=== PATIENT | male | born 1960 | race Caucasian/White ===

== ENCOUNTER 2019-11-10 07:35 | Day surgery (SDC) | payer OTHER ==
[2019-11-09 10:41] VITALS: BMI 27.3
--- OUTSIDE RECORDS SUMMARY | 2019-11-10 07:39 | XMS ---
:1960 Author Organization [facility] Care Team Providers Name Role Phone MD Patricio Martinez Unavailable Unavailable Hamilton [place] Unavailable Unavailable MD Sara Wagoner Unavailable Unavailable Hermilo Mtz MD Unavailable Unavailable LEENA HEADLEY Unavailable Unavailable REVA HEADLEY Unavailable Unavailable REVA HEADLEY Unavailable Unavailable REVA HEADLEY Unavailable Unavailable Re-disclosure Warning The records that you are about to access may contain information from federally- assisted alcohol or drug abuse programs. If such information is present, then the following federally mandated warning applies: This information has been disclosed to you from records protected by federal confidentiality rules (42 CFR part 2). The federal rules prohibit you from making any further disclosure of this information unless further disclosure is expressly permitted by the written consent of the person to whom it pertains or as otherwise permitted by 42 CFR part 2. A general authorization for the release of medical or other information is NOT sufficient for this purpose. The Federal rules restrict any use of the information to criminally investigate or prosecute any alcohol or drug abuse patient.The records that you are about to access may contain highly sensitive health information, the redisclosure of which is protected by Article 27-F of the [facility] Public Health law. If you continue you may haveaccess to information: Regarding HIV / AIDS; Provided by facilities licensed or operated by the [facility] Office of Mental Health; or Provided by the [facility] Office for People With Developmental Disabilities. If such information is present, then the following [facility] mandated warning applies: This information has been disclosed to you from confidential records which are protected by state law. State law prohibits you from making any further disclosure of this information without the specific written consent of the person to whom it pertains, or as otherwise permitted by law. Any unauthorized further disclosure in violation of state law may result in a fine or long-term sentence or both. A general authorization for the release of medical or other information is NOT sufficient authorization for further disclosure. 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 Observation Data S ource(s) Description Advance No completed [place] [facility] Advance No completed [place] [facility] Allergies and Adverse Reactions Type Description Substance Reaction Status Data Source(s ) Drug allergy No Known Allergies No Known NO KNOWN ALLERG [facility] Encounters Encounter Providers Location Date Indications Data Source(s ) P Attender: LEENA 10/30/2019 Z03.818 Reynaldo HEADLEY 11:09:00 AM EDT [facility] Z03.818 S Attender: MD Ruiz ICU-AMB SURG 09/15/2019 03:30:52 PM S - Lily Wagoner EDT - 09/17/2019 Hospital 02:11:00 PM EDT Patient discharged. Outpatient Attender: MD Ruiz ICU-LAB 09/15/2019 03:26:13 PM S - iLly Wagoner EDT - 09/16/2019 Hospital 11:59:00 PM EDT Patient discharged. Outpatient Attender: Hermilo 07/15/2019 08:00:00 SCREENING FOR [place] AM EDT - 08/21/2019 MALIGNANT NEOPLA [facility] 08:02:00 AM EDT COLON SCREENING FOR MALIGNANT NEOPLASM COLON Patient discharged. Outpatient Attender: ICU-SPORTS MED CL 03/27/2019 07:59:00 [facility] - Lily Wagoner AM EST - 03/27/2019 [facility] 11:59:00 PM EST Patient discharged. R Attender: MD Curry ICU-SENIOR BUSINESS PROCESS ANALYST 01/16/2019 10:26:00 AM [facility] - [place] [facility] EST - 01/16/2019 Hospital 11:26:00 PM EST Patient discharged. Outpatient Attender: ICU-SPORTS MED CL 01/16/2019 08:17:00 [facility] - [place] Sara Allenr AM EST - 01/16/2019 [facility] 11:59:00 PM EST Patient discharged. R Attender: MD Curry ICU-SENIOR BUSINESS PROCESS ANALYST 12/26/2018 10:35:00 AM [facility] - [place] [facility] EST - 01/02/2019 Hospital 11:59:00 PM EST Patient discharged. Outpatient Attender: ICU-SPORTS MED CL 12/12/2018 09:18:00 [facility] - [place] Sara Rizwana AM EDT - 12/12/2018 [facility] 11:59:00 PM EDT Patient discharged. Outpatient Attender: MD Ruiz ICU-ORTHO 11/14/2018 08:41:00 AM S - [place] [facility] EDT - 11/14/2018 [facility] 11:59:00 PM EDT Patient discharged. S Attender: MD Sara Wagoner ICU-3N 11/04/2018 03:04:58 PM EDT S - [place] - 11/06/2018 09:46:00 AM Hospital EDT Patient discharged. Outpatient Attender: ICU-SPORTS MED CL 10/31/2018 08:46:00 [facility] - [place] Sara Rizwana AM EDT - 10/31/2018 [facility] 11:59:00 PM EDT Patient discharged. Emergency Attender: Hamilton ICU-EMERG 10/30/2018 BIBA RT KNEE [facility] - N ew [place] 08:00:00 AM EDT INJURY/EMPRESS Stephanie lle - 10/30/2018 Hospital 11:25:00 AM EDT BIBA RT KNEE INJURY/EMPRESS Patient discharged. Medications Medication Brand Start Product Dose Route Administrative Pharm[facility] Indications Reaction Description Data Name Date Form Instructions Instructions Source(s) Acetaminoph oxycod [id number] active Aceta minlanre [facility] en 325 MG / one-2019 {tab( n-OxyCODON E Health Oxycodone etamin 07:55: s)} Hydrochlori d System Hydrochlori ophen 04 AM e de 5 MG 5 EDT Oral Tablet mg-325 oxycodone-a mg cetaminophe oral n 5 mg-325 tablet mg oral tablet Caution federal law prohibits the transf er of this drug to any person other than the person for whom it was prescribed.May ca use drowsiness. Alcohol may intensify this effect. Use care when operating [employer] us machinery.This prescription cannot be refilled.This product contains acetamino phen. Do not use with any other product containing acetaminophen to prevent poss ible liver damage.Using more of this medication than prescribed may cause ser ious breathing problems. Aspirin aspirin 11/06/2018 1 [id number] completed aspirin 81 mg oral delayed release tablet; 1 tab(s) orally 2 times a day Ordered: 06-Nov-2018 Start: 06-Nov-2018 [facility] 81 MG 81 mg 08:52:48 AM {tab(s)} Quantit y: 0 Debbie Joi Status: No Longer Active Health Delayed oral EDT Refills: 0 System Release delayed Oral release Tablet tablet aspirin 81 mg oral delayed release tablet Ketorolac ketorolac 11/05/2018 TABLET 1 {tab(s)} ORAL completed [facility] Tromethamine 10 mg oral 02:31:50 PM Health 10 MG Oral tablet EDT System Tablet ketorolac 10 mg oral tablet It is very important that you take or us e this exactly as directed. Do not skip doses or discontinue unless directed by your doctor.May cause drowsiness or dizziness.Obtain medical advice before t aking any non-prescription drugs as some may affect the action of this medication.Rubén e with food or milk. Acetaminophen 325 MG / oxycodone-acetaminophen 11/05/2018 1 C382 88 aborted Acetaminophen-OxyCODONE [facility] Oxycodone Hydrochloride 5 mg-325 mg oral tablet 02:30:03 PM {tab(s)} Hydrochloride Health 5 MG Oral Tablet EDT Sys tem oxycodone-acetaminophen 5 mg-325 mg oral tablet Caution federal law prohibits the transf er of this drug to any person other than the person for whom it was prescribed.May ca use drowsiness. Alcohol may intensify this effect. Use care when operating dangero us machinery.This prescription cannot be refilled.This product contains acetamino phen. Do not use with any other product containing acetaminophen to prevent poss ible liver damage.Using more of this medication than prescribed may cause ser ious breathing problems. Acetaminophen 325 MG / oxycodone-acetaminophen 10/31/2018 TABLET 1 ORAL completed [facility] Oxycodone Hydrochloride 5 mg-325 mg oral tablet 10:06:50 AM {tab(s)} Health 5 MG Oral Tablet EDT Sys tem oxycodone-acetaminophen 5 mg-325 mg oral tablet Caution federal law prohibits the transf er of this drug to any person other than the person for whom it was prescribed.May ca use drowsiness. Alcohol may intensify this effect. Use care when operating [employer]ang[employer] us machinery.This prescription cannot be refilled.This product contains acetamino phen. Do not use with any other product containing acetaminophen to prevent poss ible liver damage.Using more of this medication than prescribed may cause ser ious breathing problems. Acetaminophen 325 MG / oxycodone-acetaminophen 10/31/2018 1 C 77194 completed Acetaminophen-OxyCODONE [facility] Oxycodone Hydrochloride 5 mg-325 mg oral tablet 10:06:50 AM {tab(s)} Hydrochloride Health 5 MG Oral Tablet EDT Sys tem oxycodone-acetaminophen 5 mg-325 mg oral tablet Caution federal law prohibits the transf er of this drug to any person other than the person for whom it was prescribed.May ca use drowsiness. Alcohol may intensify this effect. Use care when operating [employer]ang[employer] us machinery.This prescription cannot be refilled.This product contains acetamino phen. Do not use with any other product containing acetaminophen to prevent poss ible liver damage.Using more of this medication than prescribed may cause ser ious breathing problems. Acetaminophen 325 MG / oxycodone-acetaminophen 10/30/2018 1 C 26724 completed Acetaminophen-OxyCODONE [facility] Oxycodone Hydrochloride 5 mg-325 mg oral tablet 10:47:25 AM {tab(s)} Hydrochloride Health 5 MG Oral Tablet EDT Sys tem oxycodone-acetaminophen 5 mg-325 mg oral tablet Caution federal law prohibits the transf er of this drug to any person other than the person for whom it was prescribed.May ca use drowsiness. Alcohol may intensify this effect. Use care when operating dangero us machinery.This prescription cannot be refilled.This product contains acetamino phen. Do not use with any other product containing acetaminophen to prevent poss ible liver damage.Using more of this medication than prescribed may cause ser ious breathing problems. Alprazolam Xanax 03/26/2015 1 {tab(s)} C57108 completed Xanax [facility] 0.25 MG Oral 0.25 mg 09:34:30 PM Health Tablet oral EST System [Xanax] tablet Xanax 0.25 mg oral tablet Avoid grapefruit and grapefruit juice wh ile taking this medication.Caution federal law prohibits the transfer of this drug to any person other than the person for whom it was prescribed.Do not take this drug if you are .May cause drowsiness. Alcohol may intensify this effect. Use care when operating dangerous machinery. Alprazolam Xanax 01/30/2015 1 {tab(s)} T93425 completed Xanax [facility] 0.25 MG Oral 0.25 mg 08:51:16 AM Health Tablet oral EST System [Xanax] tablet Xanax 0.25 mg oral tablet Avoid grapefruit and grapefruit juice wh ile taking this medication.Caution federal law prohibits the transfer of this drug to any person other than the person for whom it was prescribed.Do not take this drug if you are .May cause drowsiness. Alcohol may intensify this effect. Use care when operating dangerous machinery. Hydroxyzine hydrOXYzine 01/24/2015 1 I66215 completed HydrOXYzine [facility] Hydrochloride hydrochloride 04:31:16 AM {tab(s)} Hydrochloride Health 25 MG Oral 25 mg oral EST Sys tem Tablet tablet hydrOXYzine hydrochloride 25 mg oral tablet May cause drowsiness. Alcohol may inten sify this effect. Use care when operating dangerous machinery.Obtain medical advic e before taking any non-prescription drugs as some may affect the action of this medic ation. Trazodone traZODone 50 1 V10142 active Tra ZODone [facility] Hydrochloride mg oral {tab(s)} Hydr ochloride Health 50 MG Oral tablet System Tablet traZODone 50 mg oral tablet HYDROcodone 50 [id number] 1 Z34456 active Zohydro ER [facility] mg oral {cap(s)} Health capsule, System extended release Diazepam 10 MG diazePAM 10 1 F57280 active Diazepam [facility] Oral Tablet mg oral {tab(s)} H ealth diazePAM 10 mg tablet Sys tem oral tablet sildenafil 20 sildenafil 1 M28893 active R evatio [facility] MG Oral Tablet 20 mg oral {tab(s)} Health sildenafil 20 tablet Syst em mg oral tablet Diazepam 10 MG Diazepam TABLET 10 mg ORAL active [facility] Oral Tablet [facility] Insurance Providers Payer name Policy type / Policy ID Covered Covered green party's Policy Plan Coverage type green party ID relationship to Kc Information kc [place] [id number] SP [id number] 1 HEALTH PLANS [place] [id number] PT [id number] 1 HEALTH PLAN HMO [employer] [id number] [place] Commercial [id number] Fin Assist Self Pay 1 Fee Code X Self Pay Self Pay 1 Fin Assist Self Pay PT PAID 1 PT PAID $ 3,500 Fee Code X $3,500 [employer] [id number] Fin Assist Self Pay 1 Fee Code X Fin Assist Self Pay 1 Fee Code 8 Problems, Conditions, and Diagnoses Code Display Name Description Problem Type Effective Data Sour ce(s) Dates R53.1 Weakness Decreased Diagnosis 09/17/2019 [facility] - New strength 06:38:00 AM [facility] [address] Suture of Suture of Diagnosis 09/17/2019 [facility] - New quadriceps or quadriceps or 06:38:00 AM [facility] e hamstring muscle hamstring muscle EDT Ho spital rupture; rupture; secondary secondary reconstruction, reconstruction, including fascial including fascial or tendon graft or tendon graft S76.111D Strain of right Strain of right Diagnosis 09/17/2019 [facility] - New quadriceps quadriceps 06:38:00 AM [facility] muscle, fascia muscle, fascia EDT Hospit al and tendon, and tendon, subsequent subsequent encounter encounter S76.111A Strain of right Quadriceps muscle Diagnosis 09/17/2019 MH S - New quadriceps rupture, right, 06:38:00 AM [facility] muscle, fascia initial encounter EDT Hos pital and tendon, initial encounter M25.60 Stiffness of Decreased range Diagnosis 09/17/2019 MHS - N ew unspecified of motion 06:38:00 AM [facility] joint, not EDT Hospital elsewhere classified X50.0XXD Overexertion from Overexertion from Diagnosis 09/17/2019 [facility] - New strenuous strenuous 06:38:00 AM [facility] movement or load, movement or load, EDT Hospital subsequent subsequent encounter encounter Y92.89 Other specified Other specified Diagnosis 09/17/2019 S - New places as the places as place 06:38:[address] of of occurrence of EDT Hospital occurrence of the external cause external cause Y99.8 Other external Other external Diagnosis 09/17/2019 S - New cause status cause of injury 06:38:00 AM Patria le or poisoning EDT Hospital R26.2 Difficulty in Difficulty Diagnosis 09/17/2019 S - New walking, not walking 06:38:00 AM Radha elsewhere EDT Hospital classified Y93.89 Activity, other Other activity Diagnosis 09/17/2019 S - New specified 06:38:00 AM [place] EDT Hospital Z11.59 Encounter for Encounter for Diagnosis 09/16/2019 S - Ne w screening for laboratory 02:38:00 PM Radha other viral testing for EDT Hospital diseases COVID-19 virus S79.119A Salter-Vaughn Salter-Vaughn Diagnosis 01/16/2019 S - Ne w Type I physeal type I physeal 08:17:00 AM Stephanie lle fracture of lower fracture of EST Hospit al end of distal end of unspecified femur, initial femur, initial encounter encounter for closed fracture S76.119A Strain of Quadriceps tendon Diagnosis 11/05/2018 S - N ew unspecified rupture 11:26:00 AM [place] quadriceps EDT Hospital muscle, fascia and tendon, initial encounter S86.811A Strain of other Strain of other Diagnosis 11/05/2018 S - New muscle(s) and muscle(s) and 11:26:00 AM [place]iss[place] e tendon(s) at tendon(s) at EDT Hospital lower leg level, lower leg level, right leg, right leg, initial encounter initial encounter 09496 Lateral Lateral Diagnosis 11/05/2018 S - New retinacular retinacular 11:26:00 AM Radha release, open release, open EDT Hospital X58.XXXA Exposure to other Exposure to other Diagnosis 11/05/2018 S - New specified specified 11:26:00 AM [facility] factors, initial factors, initial EDT Ho spital encounter encounter S83.8X1A Sprain of other Sprain of other Diagnosis 10/30/[address] [facility] - New specified parts specified parts 08:00:00 AM [place]on helle of right knee, of right knee, EDT Hospit al initial encounter initial encounter Y92.488 Other paved Other paved Diagnosis 10/30/[address] [facility] - New roadways as the roadway as place 08:00:[address] of of occurrence of EDT Hospital occurrence of the external cause external cause W18.39XA Other fall on Other fall on Diagnosis 10/30/2018 S - Ne w same level, same level, 08:00:00 AM [place] initial encounter initial encounter EDT Hospital M25.461 Effusion, right Effusion of right Diagnosis 10/30/2018 S - New knee knee 08:00:00 AM [facility] BIBA RT KNEE BIBA RT KNEE Diagnosis 10/30/[address] [facility] - New INJURY/EMPRESS INJURY/EMPRESS 08:00:00 AM [facility] Y93.02 Activity, running Activities Diagnosis 10/30/2018 S - N ew involving running 08:00:00 AM [facility] [id number] Rupture of Quadriceps tendon Diagnosis [facility] quadriceps tendon rupture Health System (disorder) Surgeries/Procedures Procedure Description Date Indications Data Source(s) XR Femur 2+ Views Right - [facility] Fem[facility] 2+ Views Right 09:03:00 AM System - [id number] EDT - 10/30/2018 09:03:00 AM EDT XR Knee 4 Views-Right XR Knee 10/30/2018 [facility] 4 Views-Right 09:03:00 AM System EDT - 10/30/2018 09:03:00 AM EDT Electrocardiographic 01/24/2015 [facility] procedure (procedure) 02:07:48 AM System EST - 01/24/2015 03:19:30 AM EST Results ID Date Data Source [id number] 11/06/2019 12:00:00 AM EDT [facility] Name Value Range Interpretation Code Description Data Maegan rce(s) Supporting Document(s ) 2019-nCoV [facility] RNA XXX RACHELL+probe- Imp This lab was ordered by ABELS - LILY NUÑEZ([facility]) and reported by [employer]. ID Date Data Source [id number] 10/29/2019 12:00:00 AM EDT [facility] Name Value Range Interpretation Code Description Data Maegan rce(s) Supporting Document(s ) 2019-nCoV [facility] RNA XXX RACHELL+probe- Imp This lab was ordered by ARNAUD NUÑEZ([facility]) and reported by [employer]. ID Date Data Source [id number] 01/24/2015 02:07:00 AM EST [facility] Name Value Range Interpretation Description Data Sup porting Code Source(s) Document(s ) Color Yellow Normal (applies Color [facility] to non-numeric Health results) System pH.. 6.0 Normal (applies pH.. [facility] {pH_units to non-numeric Health } results) System Appearance of CLEAR Normal (applies Urine [facility] Urine to non-numeric Appearance Health results) System Specific 1.016 Normal (applies Urine Specific [facility] gravity of to non-numeric [facility] Urine results) System Protein NEG Normal (applies Protein [facility] [Mass/volume] to non-numeric Health in Serum or results) System Plasma Glucose,UA NEG Normal (applies Glucose, UA [facility] to non-numeric Health results) System Ketones NEG Normal (applies Ketones UA [facility] [Mass/volume] to non-numeric Health in Urine results) System Urobilinogen < 2.0 Normal (applies Urobilinogen [facility] [Mass/volume] to non-numeric UA Health in Urine results) System Reference Range: Negative or <=2.0 Leukocyte esterase NEG Normal (applies Leukocyte Essence ase [facility] [Units/volume] in to non-numeric Concentration Hea lt System Urine results) Nitrate+Nitrite Negative Normal (applies Nitrite [facility] [Mass/volume] in to non-numeric Health S ystem Unspecified specimen results) BilirubinUrine NEG Normal (applies Bilirubin Urine [facility] to non-numeric [facility] System results) Leukocytes 2 {/HPF} Normal (applies White Blood Cells Koby lesly [#/volume] in to non-numeric Health Syst em Unspecified specimen results) by Automated count Bacteria [Presence] FEW Normal (applies Bacteria [facility] in Unspecified to non-numeric Health Sys tem specimen results) UrineBlood SM(1+) Abnormal (applies Urine Blood [facility] to non-numeric Health System results) RedBloodCells 6 {/HPF} Normal (applies Red Blood Cells [facility] to non-numeric Health System results) Mucus RARE Normal (applies Mucus [facility] to non-numeric Health System results) ID Date Data Source [id number] 01/24/2015 02:07:00 AM EST [facility] Name Value Range Interpretation Description Data Sup porting Code Source(s) Document(s ) Leukocytes 9.0 Normal (applies WBC Count [facility] [#/volume] in {10^3_uL to non-numeric Health Unspecified } results) System specimen by Automated count Erythrocyte mean 89.1 fl Normal (applies MCV [facility] corpuscular to non-numeric Health volume [Entitic results) System volume] by Automated count Hematocrit 48.4 % Normal (applies Hematocrit [facility] [Volume to non-numeric Health Fraction] of results) System Blood Erythrocytes 5.43 Normal (applies RBC Count [facility] [#/volume] in {10^6_uL to non-numeric Health Blood by } results) System Automated count Hemoglobin 15.3 Normal (applies Hemoglobin [facility] [Mass/volume] in {gm/dL} to non-numeric Health Blood results) System Platelets 290 Normal (applies Platelet Count [facility] [#/volume] in {10^3_uL to non-numeric Health Plasma by } results) System Automated count Erythrocyte mean 28.2 pg Normal (applies MCH [facility] corpuscular to non-numeric Health hemoglobin results) System [Entitic mass] by Automated count Erythrocyte mean 31.6 Normal (applies MCHC [facility] corpuscular {gm/dL} to non-numeric Health hemoglobin results) System concentration [Mass/volume] by Automated count Erythrocyte 12.8 % Normal (applies RDW-CV [facility] distribution to non-numeric Health width [Entitic results) System volume] by Automated count NRBC# 0.00 Normal (applies NRBC # [facility] {10^6_uL to non-numeric Health } results) System Neutrophils/100 57.4 % Normal (applies Neutrophil % Koby lesly leukocytes in to non-numeric Health Blood by results) System Automated count Platelet mean 9.4 fl Normal (applies MPV [facility] volume [Entitic to non-numeric Health volume] in Blood results) System by Automated count Nucleated 0.0 Normal (applies NRBC % [facility] erythrocytes {/100_WB to non-numeric Health [#/volume] in C} results) System Body fluid Monocytes/100 8.9 % Normal (applies Monocyte % [facility] leukocytes in to non-numeric Health Blood results) System Monocytes 0.8 Normal (applies Monocyte # [facility] [#/volume] in {10^3_uL to non-numeric Health Blood by Manual } results) System count Lymphocytes 30.3 % Normal (applies Lymphocyte % [facility] [#/volume] in to non-numeric Health Blood by results) System Automated count Neutrophils 5.2 Normal (applies Neutrophil # [facility] [#/volume] in {10^3_uL to non-numeric Health Body fluid } results) System Lymphocyte 2.7 Normal (applies Lymphocyte # [facility] percent {10^3_uL to non-numeric Health differential } results) System count (procedure) Basophils/100 0.8 % Normal (applies Basophil % [facility] leukocytes in to non-numeric Health Unspecified results) System specimen by Manual count Eosinophils/100 1.6 % Normal (applies Eosinophil % Koby lesly leukocytes in to non-numeric Health Unspecified results) System specimen Basophils 0.07 Normal (applies Basophil # [facility] [#/volume] in {10^3_uL to non-numeric Health Blood by } results) System Automated count Eosinophils 0.14 Normal (applies Eosinophil # [facility] [#/volume] in {10^3_uL to non-numeric Health Blood } results) System ImmatureGranuloc 1.0 % Above high Immature [facility] ytes% normal Granulocytes % Health System ImmatureGranuloc 0.09 Normal (applies Immature [facility] ytes# {10^3_uL to non-numeric Granulocytes # Health } results) System ID Date Data Source [id number] 01/24/2015 02:07:00 AM EST [facility] Name Value Range Interpretation Description Data Sup porting Code Source(s) Document(s ) Thyrotropin 2.130 Normal (applies Thyroid [facility] [Mass/volume] {mIU/mL} to non-numeric Stimulating Health Sy stem in Serum or results) Hormone, Serum Plasma ID Date Data Source [id number] 01/24/2015 02:07:00 AM EST [facility] Name Value Range Interpretation Description Data Sup porting Code Source(s) Document(s ) Sodium 136 Normal (applies Sodium, Serum [facility] [Moles/volume] in mmol/L to non-numeric Health Serum or Plasma results) System Potassium 4.4 Normal (applies Potassium, [facility] [Mass/volume] in mmol/L to non-numeric Serum Health Serum or Plasma results) System Chloride 100 Below low normal Chloride, [facility] [Moles/volume] in mmol/L Serum [facility] Serum or Plasma System Carbon dioxide, 28.7 Normal (applies CO2, Serum [facility] total mmol/L to non-numeric Health [Moles/volume] in results) System Serum or Plasma TotalProtein 6.6 Normal (applies Total Protein [facility] mg/dl to non-numeric Health results) System Creatinine 1.13 Normal (applies Creatinine, [facility] [Mass/volume] in mg/dl to non-numeric Serum Health Serum or Plasma results) System Urea nitrogen 24 Above high Blood Urea [facility] [Mass/volume] in mg/dl normal Nitrogen, Health Serum or Plasma Serum System Glucose 89 Normal (applies Glucose, [facility] [Mass/volume] in mg/dL to non-numeric Serum Health Serum or Plasma results) System Alkaline 47 Normal (applies Alkaline [facility] phosphatase {IU/L} to non-numeric Phosphatase, Health isoenzymes results) Serum System [Enzymatic activity/volume] in Serum or Plasma by Heat stability Aspartate 44 Above high Aspartate [facility] aminotransferase {IU/L} normal Transaminase, Health [Enzymatic Serum System activity/volume] in Serum or Plasma by With P-5'-P Bilirubin.total 0.3 Normal (applies Bilirubin, [facility] [Mass/volume] in mg/dl to non-numeric Serum Total Health Serum or Plasma results) System DirectBilirubin 0.1 Normal (applies Direct [facility] mg/dl to non-numeric Bilirubin Health results) System I.Phosphorus 4.4 Normal (applies I. Phosphorus [facility] mg/dl to non-numeric Health results) System Alanine 31 Normal (applies Alanine [facility] aminotransferase {IU/L} to non-numeric Aminotransfer Heal th [Enzymatic results) ase, Serum System activity/volume] in Serum or Plasma Albumin 3.8 Normal (applies Albumin, [facility] [Mass/volume] in {gm/dl} to non-numeric Serum Health Serum or Plasma results) System Calcium 9.7 Normal (applies Calcium, [facility] [Mass/volume] in mg/dl to non-numeric Total Serum Health Serum or Plasma results) System Glomerular 67.00 Normal (applies GFR [facility] filtration to non-numeric Health rate/1.73 sq results) System M.predicted [Volume Rate/Area] in Serum or Plasma by Creatinine-based formula (CKD-EPI) eGFR will provide clinicians with a more accurate indicator of renal function then the serum creatinine. The eGFR is automa tically calculated from an empiric formula (endorsed by the National [employer] ion) which incorporates age, sex, and race.Clinicians may notice surprisingly low GFR's with serum creatinine valueswithin normal range- particularly in elderly wo men (with low muscle mass).In the hospital setting, the eGFR should add an element of safety in drug dosing, in assessing the risk of IV contrast administration, and in assessing vascular risk.The NKF staging system is as follows:Normal: eGFR >90 with no kidney markersStage 1: eGFR >90 with kidney markers*Stage 2: eGFR 60- 89Stage 3: eGFR 30-59Stage 4: eGFR 15-29Stage 5: eGFR <15 (usually requir ing dialysis)*Markers include: Proteinuria, Hematuria, abnormal imaging-studies, or other blood or urine test abnormalities Anion gap in 7.30 mmol/L Normal (applies to Anion Gap [facility] Serum or Plasma non-numeric results) Sys tem Urate 3.9 mg/dl Normal (applies to Uric Acid, [facility] [Mass/volume] in non-numeric results) Serum Sy stem Serum or Plasma A/GRatio 1.36 Normal (applies to A/G Ratio [facility] non-numeric results) System ID Date Data Source [id number] 01/24/2015 02:07:00 AM EST [facility] Name Value Range Interpretation Description Data Sup porting Code Source(s) Document(s ) AlcoholE None Detected Normal (applies Alcohol Ethyl, [facility] thyl,Blo Reference to non-numeric Blood Health System od Range: None results) Detected ID Date Data Source [id number] 01/24/2015 02:07:00 AM EST [facility] Name Value Range Interpretation Description Data Sup porting Code Source(s) Document(s ) TroponinIQuantitative 0.02 Normal (applies Troponin I [facility] ng/ml to non-numeric Quantitative Health results) System ID Date Data Source [id number] 01/24/2015 02:07:00 AM [facility] System Name Value Range Interpretation Code Description Data Maegan rce(s) Supporting Document(s ) D-DimerHi < 150 Normal (applies to D-Dimer High [facility] non-numeric Sensitivity Health System vity results) D-Dimer result below 230 ng/ml has high negative predictive value for diagnosing DVT. A positive D-Dimer test, although helpfu l, is not by itself diagnostic of DIC. D-Dimer for DIC must be interpreted in t he context of platelet count, fibrinogen, PT/INR, PTT, and clinical feature of th e patient. ID Date Data Source [id number] 01/24/2015 02:07:00 AM [facility] System Name Value Range Interpretation Description Data Sup porting Code Source(s) Document(s ) Barbiturates Negative Normal (applies Barbiturate [facility] [Mass/volume] to non-numeric Screen, Urine Health in Urine by results) System Screen method Cut-off = 200 ng/mL Reference Range: NEG ATIVE 200 ng/ml Amphetamine Negative Normal (applies to Amphetamine Level, [facility] [Mass/volume] in non-numeric Urine Health Syst em Urine results) Cut-off = 1000 ng/mL Reference Range: NE GATIVE 1000 ng/ml Benzodiazepines Negative Normal (applies Benzodiazepines, [facility] [Mass/volume] in to non-numeric Urine Health S ystem Urine results) Cut-off = 200 ng/mL Reference Range: NEG ATIVE 200 ng/ml Cocaine Negative Normal (applies Cocaine [facility] metabolites.other to non-numeric Metabolite Health System [Mass/volume] in Urine results) Screen, Urine Cut-off = 300 ng/mL Reference Range: NEG ATIVE 300 ng/ml Methadone Negative Normal (applies to Methadone Level, [facility] [Mass/volume] in non-numeric Urine System Urine results) Cut-off = 300 ng/mL Reference Range: NEG ATIVE 300 ng/ml [id number],Urine Negative Normal (applies to Opiate 300, [facility] non-numeric results) Urine System Cut-off = 300 ng/mL Reference Range: NEG ATIVE 300 ng/ml Phencyclidine Negative Normal (applies Phencyclidine, Urine [facility] [Mass/volume] in to non-numeric Health S ystem Urine results) Cut-off = 25 ng/mL Reference Range: NEGA TIVE 25 ng/ml THC Negative Normal (applies to non-numeric resul ts) THC [facility] Cutt-off = 50These results are for medic al treatment only. The positive findings are unconfirmed. Request confirmatory/quanti tative test if needed. Reference Range: NEGATIVE 50 ng/mL ID Date Data Source [id number] 01/24/2015 02:07:00 AM EST [facility] System Name Value Range Interpretation Description Data Sup porting Code Source(s) Document(s ) Creatine 621 Above high normal Creatine [facility] kinase.MB {IU/L} Kinase, Serum [facility] System [Mass/volume ] in Serum or Plasma ID Date Data Source [id number] 01/30/2015 08:12:00 AM EST [facility] System Name Value Range Interpretation Description Data Sup porting Code Source(s) Document(s ) Creatine 868 Above high normal Creatine [facility] kinase.MB {IU/L} Kinase, Serum [facility] System [Mass/volume ] in Serum or Plasma ID Date Data Source [id number] 09/22/2019 01:55:51 AM EDT [facility] [employer] System Name Value Range Interpretation Description Data Sup porting Code Source(s) Document(s ) 99856-2 NEGATIVE Testing Normal (applies COVID-19.. [facility] was performed to non-[facility] Syst em using Rashid ID results) NOW COVID-19, an isothermal nucleic acid amplification technology for the qualitative detection of nucleic acid from the SARS-CoV-2 viral RNA in respiratory specimens. The ID NOW COVID-19 test has been approved by the Food and Drug Administration (FDA) under an Emergency Use Authorization for use by authorized laboratories. Reference Range: NEGATIVE . ID Date Data Source [id number] 09/16/2019 03:23:00 PM EDT [facility] Name Value Range Interpretation Code Description Data Maegan rce(s) Supporting Document(s ) COVID-19.. [facility] This lab was ordered by [facility] and reported by [facility]. ID Date Data Source [id number] 08/13/2019 12:00:00 AM EDT [facility] Name Value Range Interpretation Code Description Data Maegan rce(s) Supporting Document(s ) nCoV [place]SDOH RNA XXX RACHELL+probe- Imp This lab was ordered by [facility]ILY NU[facility]) and reported by [employer] ID Date Data Source [id number] 07/24/2019 12:00:00 AM EDT [facility] Name Value Range Interpretation Code Description Data Maegan rce(s) Supporting Document(s ) nCoV [place] RNA XXX RACHELL+probe- Imp This lab was ordered by [facility]ILY [facility]) and reported by [employer] ID Date Data Source [id number] 10/30/2018 09:03:00 AM EDT [facility] Right femurHistory: Visit reason: Fall; Findings:Osteoarthritic change present at the right hip.There is loss of joint space a nd prominent osteophyte formation.The patella appears to be angulated with respect to the anterior surface of the femur.Impression:Rule out patella disloc ation/subluxation.Osteoarthritic change of the right hip. Name Value Range Interpretation Code Description Data Maegan rce(s) Supporting Document(s ) ID Date Data Source [id number] 10/30/2018 09:03:00 AM EDT [facility] Right kneeHistory: Visit reason: Fall;F indings:There is no evidence of acute fracture or dislocation. A suprapatellar joint effusion is present.This may be displacing the patella anteriorly.Minima l calcification or ossification projects over the suprapatellar region.Impression:Join t effusion.Question displacement and angulation of the patella anteriorly. Name Value Range Interpretation Code Description Data Maegan rce(s) Supporting Document(s ) Procedure Social History Code Duration Value Status Description Data Source(s ) Smoking Unknown if ever completed Unknown if ever [facility] e [place] smoked smoked Hospital Vital Signs ID Date Data Source UNK Name Value Range Interpretation Code Description Data Source(s) Body temperature 98.5 [degF] 0 - 200 Normal (applies to 98.5 [degF ] [facility] non-numeric results) Heal th System Body temperature 36.9 Faith 0 - 99.9 Normal (applies to 36.9 Faith [facility] non-numeric results) [facility] Diastolic blood 88 mm[Hg] 0 - 999 Above high normal 88 mm[Hg] [facility] pressure [facility] System Systolic blood 140 mm[Hg] 0 - 999 Above high normal 140 mm[Hg] [facility] pressure [facility] System Oxygen saturation 98 % 0 - 999 Normal (applies to 98 % [facility] in Arterial blood non-numeric results) Health System by Pulse oximetry Respiratory rate 16 0 - 999 Normal (applies to 16 [facility] non-numeric results) [facility] Heart rate 91 0 - 999 Normal (applies to 91 [facility] non-numeric results) [facility] Body surface area 1.7 m2 1.7 m2 [facility] Derived from Health Syste m formula Body mass index 26.6 kg/m2 26.6 kg/m2 [facility] (BMI) [Ratio] Health Syst em Body weight 72.57 kg 72.57 kg [facility] Body height 165.1 cm 165.1 cm [facility] Diastolic blood 65 mm[Hg] 65 mm[Hg] [facility] Systolic blood 125 mm[Hg] 125 mm[Hg] [facility] Respiratory rate 16 /min 16 /min [facility] Heart rate 68 /min 68 /min [facility] Body temperature 36.[address] [facility] Body temperature 98.1 [degF] 98.1 [degF] [facility] Body mass index 26.5 kg/m2 26.5 kg/m2 [facility] (BMI) [Ratio] Hospital Body weight 164 [lb_av] 164 [lb_av] [facility] Body mass index 28.5 kg/m2 28.5 kg/m2 [facility] (BMI) [Ratio] Health Syst em Body temperature 98.4 [degF] 0 - 200 Normal (applies to 98.4 [degF ] [facility] non-numeric results) [facility] Body temperature 36.8 Faith 0 - 99.9 Normal (applies to 36.8 Faith [facility] non-numeric results) [facility] Diastolic blood 63 mm[Hg] 0 - 999 Below low normal 63 mm[Hg] [facility] pressure [facility] System Systolic blood 138 mm[Hg] 0 - 999 Normal (applies to 138 mm[Hg] [facility] pressure non-numeric results) [facility] Deprecated Oxygen 96 % 0 - 999 Normal (applies to 96 % [facility] saturation in non-numeric results) H ealt System Capillary blood by Oximetry Respiratory rate 17 0 - 999 Normal (applies to 17 [facility] non-numeric results) [facility] Heart rate 85 0 - 999 Normal (applies to 85 [facility] non-numeric results) [facility] Body surface area 1.9 m2 1.9 m2 [facility] Derived from [employer] Syste m formula Body weight 82.55 kg 82.55 kg [facility] Measured [facility] System Body height 170.18 cm 170.18 cm [facility] Body surface area 1.9 m2 1.9 m2 [facility] Derived from [employer] Syste m formula Body mass index 29.3 kg/m2 29.3 kg/m2 [facility] (BMI) [Ratio] Health Syst em Body weight 82.55 kg 82.55 kg [facility] Measured [facility] System Body height 167.64 cm 167.64 cm [facility] Body temperature 97.9 [degF] 0 - 200 Normal (applies to 97.9 [degF ] [facility] non-numeric results) [facility] Body temperature 36.6 Faith 0 - 99.9 Normal (applies to 36.6 Faith [facility] non-numeric results) [facility] Diastolic blood 71 mm[Hg] 0 - 999 Normal (applies to 71 mm[Hg] M [facility] pressure non-numeric results) [facility] System Systolic blood 147 mm[Hg] 0 - 999 Above high normal 147 mm[Hg] [facility] System Deprecated Oxygen 97 % 0 - 999 Normal (applies to 97 % [facility] saturation in non-numeric results) H ealt System Capillary blood by Oximetry Respiratory rate 18 0 - 999 Above high [facility] 79 0 - 999 Normal (applies to 79 [facility] non-numeric results) [facility] Patient Treatment Plan of Care Planned Activity Planned Date Details Description Data Source (s) Acetaminophen 325 MG / 09/17/2019 07:55:04 [facility] Oxycodone Hydrochloride 5 AM EDT Sy stem MG Oral Tablet Aspirin 81 MG Delayed 11/06/2018 08:52:48 [facility] Release Oral Tablet AM EDT System Ketorolac Tromethamine 10 11/05/2018 02:31:50 [facility] MG Oral Tablet PM EDT System Acetaminophen 325 MG / 11/05/2018 02:30:03 [facility] Oxycodone Hydrochloride 5 PM EDT Sy stem MG Oral Tablet Acetaminophen 325 MG / 10/31/2018 10:06:50 [facility] Oxycodone Hydrochloride 5 AM EDT Sy stem MG Oral Tablet Acetaminophen 325 MG / 10/31/2018 10:06:50 [facility] Oxycodone Hydrochloride 5 AM EDT Sy stem MG Oral Tablet Acetaminophen 325 MG / 10/30/2018 10:47:25 [facility] Oxycodone Hydrochloride 5 AM EDT Sy stem MG Oral Tablet Alprazolam 0.25 MG Oral 03/26/2015 09:34:30 [facility] Tablet [Xanax] PM EST System Alprazolam 0.25 MG Oral 01/30/2015 08:51:16 [facility] Tablet [Xanax] AM EST System Hydroxyzine Hydrochloride 01/24/2015 04:31:16 [facility] 25 MG Oral Tablet AM EST System sildenafil 20 MG Oral [facility] Tablet System HYDROcodone 50 mg oral [facility] capsule, extended release Sy stem Trazodone Hydrochloride [facility] 50 MG Oral Tablet System Diazepam 10 MG Oral [facility] Tablet System
[2019-11-10] MEDS ORDERED: TETRACAINE 0.5% OPHTH SOLN 2 ML BOTTLE ONE (09:53)
[2019-11-10] MEDS ORDERED: ERYTHROMYCIN 0.5% OPHTHALMIC OINTMENT 3.5 GM TUBE ONE (09:53)
[2019-11-10] MEDS ORDERED: LIDOCAINE 1%/EPI 1:100000 (20 ML MULTI DOSE VIAL) ONE (09:53)
[2019-11-10] MEDS ORDERED: MIDAZOLAM HCL 2 MG/2 ML SINGLE DOSE VIAL ONE (10:06)
[2019-11-10] MEDS ORDERED: PROPOFOL 20 ML ONE (10:06)
[2019-11-10] MEDS ORDERED: ceFAZolin SODIUM 1 GM VIAL ONE (10:28)
[2019-11-10] MEDS ORDERED: KETOROLAC TROMETHAMINE 30 MG/1 ML VIAL ONE (10:28)
[2019-11-10] MEDS ORDERED: LIDOCAINE HCL 2% JELLY (5 ML/TUBE) ONE (10:28)
[2019-11-10] MEDS ORDERED: ONDANSETRON 4 MG/2 ML VIAL ONE (10:28)
[2019-11-10] MEDS ORDERED: DEXAMETHASONE SOD PHOSPHATE 4 MG/1 ML VIAL ONE (10:28)
[2019-11-10] MEDS ORDERED: LIDOCAINE HCL/PF 2% SDV 5ML VIAL ONE (10:28)
[2019-11-10] MEDS ORDERED: EPHEDRINE SULFATE/0.9% NACL/PF 50 MG/10 ML SYRINGE NR ONE (10:41)
[2019-11-10] MEDS ORDERED: ONDANSETRON 4 MG/2 ML VIAL IVPUSH PRN (12:21)
[2019-11-10] MEDS ORDERED: PROMETHAZINE HCL 25 MG/1 ML VIAL IVPUSH PRN (12:21)
[2019-11-10] MEDS ORDERED: oxyCODONE HCL 5 MG TABLET PO PRN ×2 (12:21)
--- NOTE | 2019-11-10 13:47 | OP ---
DATE OF OPERATION: 11/10/2019 PREOPERATIVE DIAGNOSIS: Extensive defect, right lower lid and right medial canthus. POSTOPERATIVE DIAGNOSIS: Extensive defect, right lower lid and right medial canthus. PROCEDURE: 1. Examination under anesthesia with punctal dilation and probing of right lower canaliculus. 2. Debridement, defect, right lower lid and right medial canthus. 3. Skin-muscle myocutaneous flap advancement from the nasal bridge to the right medial canthus. 4. Full-thickness skin graft from the left postauricular region to the right medial canthus and right lower lid. 5. Right medial canthoplasty. SURGEON: Jhonny Granger MD ANESTHESIA: General. COMPLICATIONS: None. ESTIMATED BLOOD LOSS: 5 mL. OPERATIVE REPORT: Patient brought to the operating room and placed on the operating table. Vital signs monitored by Anesthesia. He was placed under general anesthesia and intubated. Timeout was performed. The wound was photographed. He was then prepped and draped in the usual sterile fashion after injection of 50/50 mixture of 2% Xylocaine, 1:100,000 epinephrine. Then 0.5% Marcaine was injected around the right medial canthus, nasal bridge of the right lower lid, the glabella in the midline, the right upper lid and the right lower lid. After prepping and draping, the lower punctum was dilated and intubated with a bone probe demonstrating it was not violated by the excision in the deep medial canthus where the medial canthal tendon had been partially excised. The wound was debrided and irrigated with antibiotics. A skin-muscle flap was then developed over the nasal bridge with relaxing incisions allowing the nasal bridge flap to advance laterally into the deep medial canthus where it was secured with a double-arm 5-0 Prolene suture passed through the skin-muscle flap and then passed through an externalized bolster to hold it in place. Three additional 6-0 Vicryl sutures were used to secure it to the deep medial canthal tendinous tissues. The advancement flap was closed subcutaneously with 5-0 Vicryl sutures, 6-0 Vicryl suture, and the skin was closed with interrupted and running 5-0 plain suture. Template was then placed over the defect in the right lower lid as this advancement flap had covered the deep medial canthal defect, and this was then oriented behind the left ear. The ear was sutured to the pretragal region with two 4-0 silk sutures. It was marked with a sterile marking pen, and this area was then injected with 2% Xylocaine with 1:100,000 epinephrine, 0.5% Marcaine. The graft was harvested in the perimeter with a 15-blade, then with a Mary scissors dissected off the subcutaneous tissue. Hemostasis was achieved with Throckmorton needle, and the wound was closed with running and then locking 3-0 chromic suture and interrupted 3-0 chromic suture after antibiotic irrigation. [place] sutures were removed. Graft was then divulsed of all subcutaneous tissue and was pie crusted with a No. 1 blade and sutured into the right lower lid with interrupted and running 6-0 plain suture with plastic technique. The right medial canthus was meticulously reconstructed, anastomosing the graft to the advanced skin-muscle flap and to the skin muscle of the upper lid and to the deep medial canthal tissues to create a new medial canthus with a preserved contour. Erythromycin ointment and strip Telfa were placed over the graft, and then pencil roll was tied over this after antibiotic ointment was placed on the Telfa with a 4-0 silk tie-over suture, and the eye was closed, and this was secured with a Telfa, an eye patch, and gentle fluff with Mastisol and paper tape. Xeroform gauze was placed behind the left ear. It should be noted the left eye was taped closed for most of the operation with Steri-Strips. Patient was extubated and taken to recovery room in stable condition. JHONNY GRANGER M.D. [id number]
[2019-11-10 13:49] VITALS: PULSE 84
[2019-11-10 14:05] VITALS: BP 134/87; TEMP 98.8
== END 2019-11-10 14:45 | disposition home or self-care (01) ==
LOC: FASU 07:35
PROVIDERS: ATTEND Ophthalmology
PROC: 0KX10ZZ Transfer Facial Muscle, Open Approach (ICD-10-PCS; 2019-11-10)
PROC: 0JB10ZZ Excision of Face Subcutaneous Tissue and Fascia, Open Approach (ICD-10-PCS; principal; 2019-11-10 10:42)
DX: H02.89 Other specified disorders of eyelid (principal)
CPT/HCPCS: 94760